=== PATIENT | female | born 1950 | race Two or more races ===

== ENCOUNTER 2025-04-26 10:15 | Inpatient (IN) | payer OTHER ==
[~2025-04-26] VITALS: Ht 160 cm; Wt 72.6 kg
[2025-04-26] MEDS ORDERED: LIPITOR40 MG PO (13:18)
[2025-04-26] MEDS ORDERED: COZAAR100 MG PO (13:18)
[2025-04-26] MEDS ORDERED: TOPROL XL25 M1 PO (13:18)
[2025-04-26] MEDS ORDERED: COUMADIN PO (13:19)
[2025-04-26 13:20] VITALS: BP 178/90
[2025-04-26 13:22] VITALS: BP 160/90
[2025-04-26 14:15] LABS: RH POSITIVE
[2025-05-04] MEDS ORDERED: KETOROLAC TROMETHAMINE 60 MG VIAL IM ONE (12:30)
[2025-05-04] MEDS ORDERED: TRANEXAMIC ACID 100MG/1ML (1000MG) AMPUL IV ONE (12:30)
[2025-05-04] MEDS ORDERED: MORPHINE SULFATE 4 MG/ML CARTRIDGE IV ONE (12:30)
[2025-05-04] MEDS ORDERED: VANCOMYCIN HCL 1,000 MG VIAL IV ONE (12:30)
[2025-05-04] MEDS ORDERED: ISOPROPYL ALCOHOL 30 ML OUNCE TOP ONE (12:30)
[2025-05-04] MEDS ORDERED: LIDOCAINE HCL 1%/EPINEPHRINE 20ML VIAL IJ ONE (12:30)
[2025-05-04] MEDS ORDERED: VANCOMYCIN HCL 1,000 MG VIAL IR ONE (12:30)
[2025-05-04] MEDS ORDERED: MORPHINE SULFATE 4 MG/ML VIAL IV ONE ×2 (14:35→19:25)
[2025-05-04] MEDS ORDERED: MORPHINE SULFATE 4 MG/ML CARTRIDGE IV PRN (15:30)
[2025-05-04] MEDS ORDERED: ONDANSETRON HCL 2 MG/ML VIAL IV PRN (15:30)
[2025-05-04] MEDS ORDERED: SODIUM CHLORIDE 0.45 % 1,000 ML IV SCH (15:30)
[2025-05-04] MEDS ORDERED: OxyCODONE HCL 5 MG TABLET (ROXICODONE) PO PRN (15:30)
[2025-05-04] MEDS ORDERED: GABAPENTIN 300 MG CAPSULE PO SCH (17:00)
[2025-05-04] MEDS ORDERED: ACETAMINOPHEN 500 MG GEL..CAP PO SCH (18:00)
[2025-05-04 19:48] VITALS: BP 140/75
[2025-05-04] MEDS ORDERED: VANCOMYCIN HCL 1,000 MG in 0.9 % SODIUM CHLORIDE 250 ML IV SCH (21:00)
[2025-05-04 23:51] VITALS: BP 113/61
[2025-05-05 04:00] VITALS: BP 122/62
[2025-05-05 07:53] LABS: BASO % 0.3 % (0.1-1.2); EOS # 0.12 (0.04-0.54); EOS % 2.1 % (0.7-7.0); LYMPH # 1.19 (1.18-3.74); LYMPH % 20.8 % (19.3-53.1); MEAN PLATELET VOLUME 10.20 fl (9.4-12.4); MONO # 0.64 (0.24-0.82); MONO % 11.2 % (4.7-12.5); NEUT # 3.74 (1.56-6.13); NEUT % 65.4 % (34.0-71.1); RED CELL DISTRIBUTION WIDTH 13.2 % (11.6-14.4)
[2025-05-05 08:33] VITALS: BP 143/70
[2025-05-05] MEDS ORDERED: APIXABAN 2.5 MG TABLET PO SCH (09:00)
[2025-05-05] MEDS ORDERED: SENNOSIDES 1 TAB TABLET PO SCH (09:00)
[2025-05-05] MEDS ORDERED: VANCOMYCIN HCL 1,000 MG VIAL IV SCH (09:00)
[2025-05-05] MEDS ORDERED: PERCOCET 5-3251 EACH PO (09:10)
[2025-05-05] MEDS ORDERED: CIPRO100 MG PO (09:10)
[2025-05-05] MEDS ORDERED: SOD FERRIC GLUC COMPLX/SUCROSE 62.5 MG/5 ML AMPUL IV SCH (11:30)
[2025-05-05] MEDS ORDERED: Cyanocobalamin/Mecobalamin 1 TAB.SL SL SCH (11:30)
[2025-05-05 12:12] LABS: COVID-19 AG NEGATIVE (NEGATIVE)
[2025-05-05 13:22] LABS: ALT/SGPT 29.0 U/L (12-78); AST/SGOT 22.0 U/L (15-37); BILIRUBIN TOTAL 1.53 mg/dL (0.3-1.2); BUN CREA RATIO 13.0 (7.0-25.0); CREATININE SERUM 0.69 mg/dL (0.55-1.02); GFR 83.63; GLOBULINA 2.6 G/DL (2.4-3.5); OSMOLALITY SERUM 291.0 MOSM/KG (275-295)
[2025-05-05 13:23] LABS: GLUCOSE FASTING 261.0 mg/dL (65-100)
[2025-05-05] MEDS ORDERED: TRANEXAMIC ACID 100MG/1ML (1000MG) AMPUL IV ONE (15:30)
[2025-05-05] MEDS ORDERED: VANCOMYCIN HCL 1,000 MG VIAL IR ONE (15:30)
[2025-05-05] MEDS ORDERED: POVIDONE-IODINE 118 ML BOTT TOP ONE (15:30)
[2025-05-05] MEDS ORDERED: ISOPROPYL ALCOHOL 30 ML OUNCE TOP ONE (15:30)
[2025-05-05 16:00] VITALS: BP 145/71
[2025-05-05] MEDS ORDERED: WARFARIN SODIUM 5 MG TABLET PO ONE (18:15)
[2025-05-06] VITALS: BP 145/74
[2025-05-06 02:35] VITALS: BP 132/67
[2025-05-06 04:45] VITALS: BP 105/60
[2025-05-06 06:13] LABS: BASO % 0.5 % (0.1-1.2); EOS # 0.17 (0.04-0.54); EOS % 2.6 % (0.7-7.0); LYMPH # 1.02 (1.18-3.74); LYMPH % 15.4 % (19.3-53.1); MEAN PLATELET VOLUME 10.10 fl (9.4-12.4); MONO # 0.54 (0.24-0.82); MONO % 8.2 % (4.7-12.5); NEUT # 4.82 (1.56-6.13); NEUT % 72.8 % (34.0-71.1); RED CELL DISTRIBUTION WIDTH 13.3 % (11.6-14.4)
[2025-05-06 06:30] LABS: INR 1.21
[2025-05-06 06:41] LABS: BUN CREA RATIO 11.0 (7.0-25.0); CREATININE SERUM 0.71 mg/dL (0.55-1.02); GFR 80.92; GLUCOSE FASTING 163.0 mg/dL (65-100); OSMOLALITY SERUM 292.0 MOSM/KG (275-295)
[2025-05-06 08:51] VITALS: BP 147/72
[2025-05-06] MEDS ORDERED: WARFARIN SODIUM 5 MG TABLET PO SCH (09:00)
[2025-05-06] MEDS ORDERED: IRON FUM,PS/FOLIC ACID/VITC/B3 1 CAP CAPSULE PO SCH (09:00)
[2025-05-06] MEDS ORDERED: JANTOVEN5 MG PO (10:12)
[2025-05-06] MEDS ORDERED: CIPRO500 MG PO (10:12)
[2025-05-06] MEDS ORDERED: ENOXAPARIN SODIUM 80 MG/0.8 ML SYRINGE SUBCUTANEO SCH (12:00)
[2025-05-06 16:00] VITALS: BP 140/80
[2025-05-06 22:20] LABS: BASO % 0.4 % (0.1-1.2); EOS # 0.17 (0.04-0.54); EOS % 1.7 % (0.7-7.0); LYMPH # 1.89 (1.18-3.74); LYMPH % 19.1 % (19.3-53.1); MEAN PLATELET VOLUME 9.40 fl (9.4-12.4); MONO # 0.89 (0.24-0.82); MONO % 9.0 % (4.7-12.5); NEUT # 6.87 (1.56-6.13); NEUT % 69.3 % (34.0-71.1); RED CELL DISTRIBUTION WIDTH 13.9 % (11.6-14.4)
[2025-05-07 02:38] VITALS: BP 116/70
== END 2025-05-07 04:19 | disposition home health service (06) | DRG 470 ==
LOC: O/R 05-04 05:47 → SURG 05-04 10:15 → OB/GYN 05-04 17:57
PROVIDERS: Internal Medicine Hematology & Oncology; ADMIT Orthopaedic Surgery; ATTEND Orthopaedic Surgery
PROC: 0MNN0ZZ Release Right Knee Bursa and Ligament, Open Approach (ICD-10-PCS; 2025-05-04)
PROC: 0SUD07Z Supplement Left Knee Joint with Autologous Tissue Substitute, Open Approach (ICD-10-PCS; 2025-05-04)
PROC: 0SRD0J9 Replacement of Left Knee Joint with Synthetic Substitute, Cemented, Open Approach (ICD-10-PCS; principal; 2025-05-04 16:00)
PROC: 30233N1 Transfusion of Nonautologous Red Blood Cells into Peripheral Vein, Percutaneous Approach (ICD-10-PCS; 2025-05-05)
DX: M17.12 Unilateral primary osteoarthritis, left knee (principal); D62 Acute posthemorrhagic anemia; M22.12 Recurrent subluxation of patella, left knee